=== PATIENT | female | born 1985 | race Caucasian/White ===

== ENCOUNTER 2017-01-29 11:50 | Emergency (ER) | payer OTHER ==
[~2017-01-29 11:50] MED LIST: FLOMAX4 PO; MULTIVITAMI1 PO; PCET PO; PYR200 PO; [UNRECOGNIZED DRUG - REMARK]
[2017-01-29 12:19] LABS: ASCORBIC ACID (UR NOT ORDER) NEG (NEG); BILIRUBIN, URINE NEGATIVE (NEG); ER URINALYSIS TAT 0 Hrs 12 Mins; KETONE, URINE NEGATIVE (NEG); LEUKOCYTE ESTERASE(NOT OR NEG (NEG); NITRITE (URINE) NEG (NEG); WBC (NOT ORDERED) (RFLEX) 2 (0-5)
[2017-01-29 12:53] LABS: BASOPHILS 0.5 %; BASOPHILS ABSOLUTE 0.04 10/3/uL (0.0-0.16); EOSINOPHILS 1.3 %; ER CBC TAT 0 Hrs 05 Mins; HEMOGLOBIN 14.7 g/dL (12.0-16.0); IMMATURE GRANULOCYTES 0.1 %; IMMATURE GRANULOCYTES ABSOLUTE 0.01 10/3/uL (0.0-0.11); LYMPHOCYTES 29.2 %; LYMPHOCYTES ABSOLUTE 2.28 10/3/uL (0.67-4.30); MANUAL DIFF NO %; MEAN CORPUS HGB CONC 34.2 g/dL (32.0-36.0); MEAN CORPUSCULAR HEMOGLOB 31.3 pg (26.0-34.0); MEAN CORPUSCULAR VOLUME 91.7 fL (80-100); MONOCYTES 6.3 %; MONOCYTES ABSOLUTE 0.49 10/3/uL (0.21-1.20); NEUTROPHILS 62.6 %; PLATELET COUNT 228 10/3/uL (150-400); RBC DISTRIBUTION WIDTH 13.1 % (12.0-16.0); RED CELL COUNT 4.69 10/6/uL (4.0-5.6); WHITE BLOOD CELLS 7.8 10/3/uL (4.5-10.5)
[2017-01-29 13:10] LABS: ALBUMIN 3.9 G/DL (3.5-5.0); BUN (BLOOD UREA NITROGEN) 11 MG/DL (6-23); CHLORIDE, SERUM 109 MMOL/L (96-112); CO2 (CARBON DIOXIDE) 27 MMOL/L (24-34); CREATININE 0.85 MG/DL (0.55-1.02); GFR AFRICAN AMERICAN 104 ML/MIN (>=60); GFR NON AFRICAN AMERICAN 90 ML/MIN (>=60); GLUCOSE, SERUM 90 MG/DL (60-99); SGPT(ALT) 18 U/L (5-65); SODIUM, SERUM 142 MMOL/L (135-148); TOTAL BILIRUBIN 0.3 MG/DL (0-1.2); TOTAL PROTEIN 7.7 G/DL (6.0-8.5)
[2017-01-29 13:13] LABS: ALKALINE PHOSPHATASE 125 U/L (45-117); GLOBULIN 3.8 G/DL (2.5-4.1); POTASSIUM, SERUM 4.9 MMOL/L (3.5-5.3)
[2017-01-29 13:14] LABS: SGOT(AST) 28 U/L (5-40)
[2017-05-06] MEDS ORDERED: BONTRIL PDM35 MG PO (18:29)
== END 2017-01-29 15:20 | disposition home or self-care (01) ==
LOC: ER 11:50
PROVIDERS: Nurse Practitioner Acute Care
DX: R10.9 Unspecified abdominal pain (principal); Z87.442 Personal history of urinary calculi; Z90.710 Acquired absence of both cervix and uterus; Z79.899 Other long term (current) drug therapy
CPT/HCPCS: 74176; 80053; 81001; 83690; 84703; 85025; 96374; 96375; 96376; 99284; J1170; J2405